=== PATIENT | male | born 1990 | race Two or more races ===

== ENCOUNTER 2017-12-09 14:43 | Emergency (ER) | payer SELFPAY ==
--- NOTE | 2017-12-09 15:05 | NUR ---
CALLED TO TRIAGE, NO ANSWER
--- NOTE | 2017-12-09 15:17 | NUR ---
CALLED TO TRIAGE,NO ANSWER
--- NOTE | 2017-12-09 16:02 | NUR ---
CALLED; NO ANSWER -
== END 2017-12-09 16:06 | disposition left against medical advice (07) ==
LOC: ER 14:47
DX: Z53.21 Procedure and treatment not carried out due to patient leaving prior to being seen by health care provider (principal)